=== PATIENT | male | born 1990 | race Caucasian/White ===

== ENCOUNTER → 2017-02-06 | Day surgery (SDC) | payer OTHER ==
[~2017-02-06] MED LIST: ABILIFY10 MG PO; BUSPAR30 MG PO; CYMBALTA PO; PANTOPRAZOLE SO40 MG PO; PAXIL40 MG PO
--- NOTE | ~2017-02-06 | OR ---
Unit #: [id number] #: [id number] Patient: GIANNA MONTILLA [id number] [address] [place], [place] [address] [id number] MR#: [id number] NAME: GIANNA MONTILLA ROOM: Date of Procedure: 02/06/2017 Admission Date: 02/06/2017 Surgeon: Juan Salinas M.D. : 1990 Attending Physician: Juan Salinas M.D. Primary Care Physician: Des Anaya, Josue OPERATIVE REPORT PREOPERATIVE EVALUATION The patient's right elbow was identified, verbally confirmed as operative site. The patient as well as surgeon found the mass on the medial aspect of the right elbow. A [place] indelible marker was used to [place] the area. Postop care was stressed to the patient including leaving the bandage out, to keep it dry, not get it wet, keep his hands off it. No activities. Not get sweaty etc. Stated he understood. PREOPERATIVE DIAGNOSIS Mass in the medial aspect of the right elbow. POSTOPERATIVE DIAGNOSIS Mass in the medial aspect of the right elbow. PROCEDURES PERFORMED 1. Biopsy of right elbow deep to the fascia for permanent specimen. 2. Infiltration block for early augmentation of anesthesia. 3. Injection of 0.25% Marcaine with epinephrine for postop analgesia, inflammation, and bleeding. ANESTHESIA Sedation by Dr. Gordon. MUSEUM DOCENT [place]. DESCRIPTION OF PROCEDURE Under satisfactory sedation, the patient's right elbow and arm were meticulously prepped and draped in sterile technique hemostasis was utilized. The patient received infiltration of 1% plain Xylocaine at the initial part of the case in the area of previously identified mass. 1 to 1.5 inch long incision staying off the crest of the ulna was done. Subcutaneous tissues were bluntly dissected. Bipolar Bovie was used throughout. Correct care was used to stay away from the ulnar nerve. The bimanual exam as well as spreading and palpation were utilized. With some difficulty, the mass was identified and found and this was excised and sent for permanent microscopic specimen (probable fibrin deposit). The size was probably 0.25 inch diameter. was copiously irrigated. The incision had gone down deep to the fascial layer down almost to the periosteum and the medial aspect of the ulna. This was closed with inverted 4-0 Vicryl, followed by Unit #: [id number] #: [id number] Patient: ROLDANGIANNA subcuticular stitches of 4-0 and then 5-0 nylon mattress, followed by Mastisol, Betadine, Steri-Strips, Neosporin, Adaptic, sterile compressive dressing. The patient tolerated this well. We will give him postop followup appointment. Dictated by... Juan Salinas M.D. LUIS ALBERTO/del TD: 02/06/2017 22:45 JOB #: [id number] OPERATIVE REPORT Page 1 of 1 X Juan Salinas MD X PROCEDURE OPERATIVE NOTE
== END | disposition home or self-care (01) ==
LOC: CSUR 07:11
DX: I96 Gangrene, not elsewhere classified (principal)
CPT/HCPCS: 88305; J2250; J3010